=== PATIENT | male | born 1960 | race Caucasian/White ===

== ENCOUNTER 2019-08-04 09:08 | Outpatient (CLI) | payer OTHER, SELFPAY ==
--- NOTE | ~2019-08-04 | XR_ITS ---
EXAMINATION: XR knee LT 3V DATE: 08/04/2019 09:29 INDICATION: Left knee pain. TECHNIQUE: 4 views of left knee were obtained. COMPARISON: None. FINDINGS: Bone alignment is normal. No fracture. There is mild osteoarthritis of patellofemoral uyen rtment. There is a moderate-sized knee joint effusion. IMPRESSION: 1. Mild left knee osteoarthritis. 2. Moderate-sized left knee joint effusion. Reviewed, dictated and finalized at location A.
== END 2019-08-04 09:09 | disposition home or self-care (01) ==
PROVIDERS: PCP Internal Medicine; Visit Provider Internal Medicine
DX: M25.562 Pain in left knee (principal)
CPT/HCPCS: 73562

== ENCOUNTER 2019-08-24 15:56 | Outpatient (RCR) | payer OTHER, SELFPAY ==
--- NOTE | 2019-08-24 17:11 | PTOPEVAL ---
Thank you for referring Jack Calvert to [facility]. Please review, sign, date and return this plan of care CESAR. I agree with and certify that the following plan of care is medically necessary. Referring Physician Date Admitting Provider: Attending Provider: Alex Bryan MD Referring Provider: *PT Outpatient Evaluation Start: 08/24/19 16:09 Freq: Status: Active Protocol: Document 08/24/19 16:10 TRISHA (Rec: 08/24/19 16:46 TRISHA [id number]) Therapy Assessment Status Assessment Status Assessment Status Evaluation Evaluation Information Problem Diagnosis left MCL sprain Onset 06/01/19 Subjective Information Pt. reports that he was Query Text:As Reported By Patient/ working on his home when he Family started noticing gradual increase in left knee pain. He describes pain in the inside of the left knee. He states that pain is increased with activity. He reports that sitting with knee in wrong position can also increase his pain. He reports that getting up from a chair can also increase pain. Pt. goal is to decrease his left knee pain. 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 Activity of Daily Living Ability Independent Indoor/Home Mobility Independent Community Mobility Independent Stairs Ability Independent Functional Cognition (Planning, Shopping Independent , Taking Medications) Cooking Yes Cleaning Yes Laundry Yes Shopping Yes Driving Yes Pain Assessment Pain Scale Pain Scale Used Numeric (1 - 10) Self Report Pain Assessment Left Knee(s) Reported Pain Level 0 Lowest Pain Intensity 0 Greatest Pain Intensity 4 Pain Aggravating Factors Weight Bearing/Standing Pain Score Pain Score 0: Self Report Lower Extremity Muscle Strength Testing General Lower Extremity Strength Gross Lower Extremity Strength bilateral hip flexion 5/5, bilateral knee flexion 5/5, bilateral knee extension 5/5, bilateral ankle dorsiflexion 5
== END 2019-09-09 10:18 | disposition home or self-care (01) ==
LOC: CHSPT 15:56
PROVIDERS: PCP Internal Medicine; Visit Provider Internal Medicine
DX: M25.562 Pain in left knee (principal); S83.412A Sprain of medial collateral ligament of left knee, initial encounter
CPT/HCPCS: 97014; 97110; 97140; 97161; G0283

== ENCOUNTER 2020-10-08 18:43 | Emergency (ER) | payer OTHER, SELFPAY ==
[2020-10-08 19:12] VITALS: BP 126/78; PULSE 89; RESP 16; TEMP 37.7; O2SAT 95
[2020-10-08 19:47] LABS: SARS-CoV-2 Ag Positive (Negative)
--- NOTE | 2020-10-08 20:01 | ED.FEVER ---
HPI - Fever General Chief Complaint: Fever Stated Complaint: cough,headache,fever Source: patient Mode of arrival: ambulatory Limitations: no limitations History of Present Illness HPI Narrative: this is a 59-year-old gentleman that presents with some fever up to 97.7 is concerned about having COVID currently not short of breath no chest pain no abdominal pain no cough does have some mild congestion and temperature and was concerned about COVID. MD elicited complaint: fever Onset (ago): day(s) Measured temperature: 99.7 C Context: sick contacts Exacerbating factors: nothing Relieving factors: nothing Related Data Home Medications Medication Instructions Recorded Confirmed allopurinol 100 mg tablet 100 mg PO DAILY 09/28/20 09/28/20 atenolol 25 mg tablet 25 mg PO DAILY 09/28/20 09/28/20 rosuvastatin 10 mg tablet 10 mg PO DAILY 09/28/20 09/28/20 hydrochlorothiazide 25 mg PO DAILY 10/08/20 10/08/20 irbesartan 300 mg PO DAILY 10/08/20 10/08/20 Allergies Allergy/AdvReac Type Severity Reaction Status Date / Time No Known Allergies Allergy Verified 10/08/20 19:12 Review of Systems Review of Systems: All systems reviewed & are unremarkable except as noted in HPI and below PMFSH Past Medical History Medical History Patient denies medical problems Family History Family History Grandparent Family history of cardiovascular disease Malignant neoplasm of prostate Father Family history of gout Hypertension Mother Family history of osteoporosis Family history of hypercholesterolemia Hypertension Family history of kidney disease Other Cerebrovascular accident Depression Family history of Alzheimer's disease Family history of arthritis Family history of coronary artery disease Social History Social History Smoking status: Never smoker Alcohol intake: current Exam Const: General: no acute distress and alert Orientation/consciousness: patient oriented x3 HENMT: Head: normal to inspection Eyes: Conjunctivae: conjunctivae normal Pupils: Equal, round and reactive pupils present Chest: Chest palpation & inspection: normal inspection of the chest Resp: Effort & Inspection: normal respiratory effort Cardio: Rate: regular rate Rhythm: regular rhythm GI: GI Palp: Yes Soft to palpation Back/Spine/Pelvis: Back: no CVA tenderness Skin: General skin exam: normal color Rashes: no rashes Psych: Mental Status: mental status grossly normal Course WINE MASTER/PA Physician Supervision patient in the room after assessment resting comfortably in no acute distress has a low-grade fever with no shortness of breath and reviewed is COVID swab which was positive. Vital Signs Vital signs: Vital Signs Temperature 37.7 C H 10/08/20 19:12 Pulse Rate 89 10/08/20 19:12 Respiratory Rate 16 10/08/20 19:12 Blood Pressure 126/78 10/08/20 19:12 Pulse Oximetry 95 10/08/20 19:12 Temperature 37.7 C H 10/08/20 19:12 Pulse Rate 89 10/08/20 19:12 Respiratory Rate 16 10/08/20 19:12 Blood Pressure 126/78 10/08/20 19:12 Pulse Oximetry 95 10/08/20 19:12 MDM - Fever Lab Data Labs: Lab Results 10/08/20 Range/Units 19:13 SARS-CoV-2 Ag (Rapid) Positive A (Negative) Critical Care Time Critical Care Time Critical Care Time: No Discharge Plan Discharge Clinical Impression: COVID-19 Patient Disposition: Home, Self-Care Condition: Stable Instructions: Antibiotic Form, COVID-19 (Coronavirus Disease 2019) (ED) Additional Instructions: advised to self isolate, Tylenol or Motrin for fever drink plenty of fluids and follow-up primary care physician if symptoms persist or worsen. Prescriptions: No Action hydrochlorothiazide 25 mg tablet 25 mg PO DAILY RF: 0 irbesartan 300 mg tablet
[2020-10-08 20:07] VITALS: BP 126/78; PULSE 89; RESP 18; TEMP 37.7; O2SAT 95
== END 2020-10-08 20:07 | disposition home or self-care (01) ==
PROVIDERS: Emergency Provider Emergency Medicine; PCP Internal Medicine
DX: U07.1 COVID-19 (principal)
CPT/HCPCS: 87426; 99282; 99283; C9803

== ENCOUNTER 2020-10-14 10:53 | Outpatient (CLI) | payer OTHER, SELFPAY ==
--- NOTE | 2020-10-14 13:30 | PC.NURSE ---
Here for outpatient infusion for covid 19 diagnosis, to room 10 with door shut for safety
--- NOTE | 2020-10-14 13:35 | PC.NURSE ---
Pt to room 210 per wc with nurse. A&Ox3. Complains of body aches and chills for the last week. Oriented to room and infusion procedure. Pt has no questions. Call sterling in reach. Reminded to call with needs.
[2020-10-14] MEDS: diphenhydrAMINE HCl CAP 25 MG CAPSULE PO (13:54)
[2020-10-14] MEDS: ACETAMINOPHEN 325 MG TABLET 650 MG PO (13:54)
[2020-10-14] MEDS: FAMOTIDINE 20 MG TABLET PO (13:54)
--- NOTE | 2020-10-14 13:55 | PC.NURSE ---
Consent for Regeneron infusion discussed, read and signed by patient. Pt has no questions.
[2020-10-14 14:04] VITALS: BP 136/77; PULSE 84; RESP 20; TEMP 38; O2SAT 95
--- NOTE | 2020-10-14 14:41 | PC.NURSE ---
Pt resting per bed without complaint. IV infusing as ordered.
--- NOTE | 2020-10-14 15:08 | PC.NURSE ---
IV infusion complete. Pt tolerated well. Pt in bed, watching tv without complaint, waiting for his post infusion one hour observation to complete.
== END 2020-10-14 10:54 | disposition home or self-care (01) ==
LOC: CHSTREATRM 10:55
PROVIDERS: PCP Internal Medicine; Visit Provider Internal Medicine
DX: Z23 Encounter for immunization (principal); U07.1 COVID-19
CPT/HCPCS: A9270; J7050; M0243

== ENCOUNTER 2022-02-26 10:42 | Outpatient (CLI) | payer OTHER, SELFPAY ==
--- NOTE | ~2022-02-26 | XR_ITS ---
EXAM: XR shoulder RT min 2V DATE: 02/26/2022 10:58 HISTORY: R SHOULDER PAIN chronic pain x 6 months worse when . COMPARISON: None available. FINDINGS: Normal mineralization. No fracture or dislocation. No lytic or blastic lesion. Mild degene rative changes at the AC joint and glenohumeral joint. No erosion or periosteal change. Soft tissues within normal limits. IMPRESSION: Mild degenerative changes. Reviewed, dictated and finalized at location K. 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
== END 2022-02-26 10:43 | disposition home or self-care (01) ==
LOC: CHSIMG 10:44
PROVIDERS: PCP Internal Medicine; Visit Provider Internal Medicine
DX: M25.511 Pain in right shoulder (principal)
CPT/HCPCS: 73030

== ENCOUNTER 2022-03-21 12:06 | Outpatient (CLI) | payer OTHER, SELFPAY ==
[2022-03-21 12:54] LABS: SARS-CoV-2 RNA PCR Positive (Negative)
== END 2022-03-21 12:07 | disposition home or self-care (01) ==
LOC: CHSLAB 12:09
PROVIDERS: PCP Internal Medicine; Visit Provider Nurse Practitioner Family
DX: U07.1 COVID-19 (principal); J06.9 Acute upper respiratory infection, unspecified
CPT/HCPCS: U0003; U0005

== ENCOUNTER 2022-07-13 13:40 | Outpatient (CLI) | payer OTHER, SELFPAY ==
--- NOTE | ~2022-07-13 | XR_ITS ---
EXAMINATION: XR_CERV2-3V_CR DATE: 07/13/2022 14:00 INDICATION: Chronic right-sided neck pain. TECHNIQUE: 3 views of cervical spine on 4 radiographs were obtained. COMPARISON: None. FINDINGS: There is 4 degrees levocurvature of cervicothoracic spine. Vertebral body heights are gladys l. There is moderately decreased disc height at C5-C6. At C5-C6, there is severe bilateral uncoverteb ral joint osteoarthritis. There is multilevel mild facet joint osteoarthritis. There is mild central canal stenosis at C5-C6. No prevertebral soft tissue swelling. IMPRESSION: 1. Moderate spondylosis at C5-C6. Reviewed, dictated and finalized at location E.
== END 2022-07-13 13:41 | disposition home or self-care (01) ==
LOC: CHSLAB 13:42
PROVIDERS: PCP Internal Medicine; Visit Provider Nurse Practitioner Family
DX: M54.2 Cervicalgia (principal); M43.02 Spondylolysis, cervical region
CPT/HCPCS: 72040

== ENCOUNTER 2022-10-24 08:41 | Outpatient (CLI) | payer OTHER, SELFPAY ==
[2022-10-24 09:17] LABS: Hemoglobin A1C 5.9 % (<5.7)
[2022-10-24 09:38] LABS: Alanine Aminotransferase 49 U/L (16-63); Alkaline Phosphatase 65 U/L (46-116); Anion Gap 7 mmol/L (8-16); Aspartate Amino Transferase 28 U/L (15-37); Bilirubin,Total 0.7 mg/dL (0.00-1.00); Blood Urea Nitrogen 18 mg/dL (7-18); Calcium 9.5 mg/dL (8.5-10.1); Carbon Dioxide 30 mmol/L (21-32); Chloride 102 mmol/L (98-108); Cholesterol 192 mg/dL (0-200); Estimated Glomerular Filt Rate 54; Glucose 122 mg/dL (70-99); HDL Direct 49 mg/dL (40-60); LDL Cholesterol Calculated 119 mg/dL (<130); Osmolality Calculated 290 mOsm/kg (285-295); Potassium 4.3 mmol/L (3.5-5.1); Prostate Specific Antigen 1.8 ng/mL (< OR = 4.0); Sodium 139 mmol/L (136-145); Thyroid Stimulating Hormone 2.81 uIU/mL (0.36-3.74); Total Protein 7.2 g/dL (6.4-8.2); Triglycerides 121 mg/dL (0-150)
== END 2022-10-24 08:42 | disposition home or self-care (01) ==
LOC: CHSLAB 08:43
PROVIDERS: PCP Internal Medicine; Visit Provider Internal Medicine
DX: R73.03 Prediabetes (principal); I10 Essential (primary) hypertension
CPT/HCPCS: 36415; 80053; 80061; 83036; 84153; 84443; G0103

== ENCOUNTER 2023-05-02 10:10 | Outpatient (CLI) | payer OTHER, SELFPAY ==
--- NOTE | ~2023-05-02 | XR_ITS ---
EXAMINATION: XR sinus min 3V DATE: 05/02/2023 10:35 INDICATION: Chronic sinusitis. TECHNIQUE: 5 views of the paranasal sinuses were obtained. COMPARISON: None. FINDINGS: Bone alignment is normal. No fracture. The paranasal sinuses are clear. IMPRESSION: 1. Normal paranasal sinuses. Reviewed, dictated and finalized at location A.
== END 2023-05-02 10:11 | disposition home or self-care (01) ==
PROVIDERS: PCP Internal Medicine; Visit Provider Internal Medicine
DX: J32.9 Chronic sinusitis, unspecified (principal)
CPT/HCPCS: 70220

== ENCOUNTER 2024-07-10 21:01 | Emergency (ER) | payer OTHER, SELFPAY ==
--- NOTE | ~2024-07-10 | XR_ITS ---
CHEST RADIOGRAPH, PA AND LATERAL CLINICAL HISTORY: cough x 3 weeks. . COMPARISON: None available TECHNIQUE: PA and lateral views of the chest. FINDINGS The cardiomediastinal silhouette is unremarkable. The lungs are clear. Visualized osseous structures and soft tissues are unremarkable. IMPRESSION: No focal infiltrate or effusion. Reviewed, dictated and finalized at location A.
--- OUTSIDE RECORDS SUMMARY | 2024-07-10 21:02 | XMS_ITS | Referral Summary ---
Author Organization [facility] Address [facility] [place] [address] Care Team Providers Care Food Court Team Member Name Role Phone Alex Bryan MD Primary Care Provider [phone] Harjinder Trevino MD Unavailable [phone] Allergies No known active allergies Medications allopurinol (ZYLOPRIM) 100 mg tablet Take 200 mg by mouth daily 3 06/07/2018 Active losartan-hydroc hlorothiazide (HYZAAR) 100-25 mg per tablet Take 1 tablet by mouth daily 1 06/05/2018 Active predniSONE (DELTASONE) 20 mg tablet TAKE 3 TABLETS BY MOUTH FOR 3 DAYS, THEN 2 TABLET FOR 3 DAYS, THEN 1 TABLET FOR 3 DAYS 0 07/10/2018 Active hydroCHLOROthia zide (HYDRODIURIL) 25 mg tablet Take 25 mg by mouth daily 07/26/2021 Active Active Problems Problem Noted Date Diagnosed Date Anorectal pain 08/23/2021 Radial tunnel syndrome of right upper extremity 09/01/2018 Nonalcoholic fatty liver disease 02/12/2011 Abnormal liver function tests 02/08/2011 Social History Tobacco Use Types Packs/Day Years Used Date Smoking Tobacco: Never Smokeless Tobacco: Never Alcohol Use Standard Drinks/Week Comments Yes 12 (1 standard drink = 0.6 oz pu re alcohol) Sex and Gender Information Value Date Recorded Sex Assigned at Not on file 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 Gender Identity Not on file Sexual Orientation Not on file Last Filed Vital Signs Vital Sign Reading Time Taken Comments Blood Pressure 153/89 08/23/2021 8:58 AM CDT Pulse 65 08/23/2021 8:58 AM CDT Temperature 36.6 C (97.9 F) 08/23/2021 8:58 AM CDT Respiratory Rate - - Oxygen Saturation - - Inhaled Oxygen Concentration - - Weight 94.9 kg (209 lb 3.2 oz) 08/23/2021 8:58 A M CDT Height 185.4 cm (6' 1 ) 08/23/2021 8:58 AM CDT Body Mass Index 27.6 08/23/2021 8:58 AM CDT Plan of Treatment Not on file Insurance SocialF5 [facility] Member Subscriber Plan / Payer ( fective 2000-Present) Name:Jack Calvert Member ID:[id number] Relation to Subscriber:Self Name:Jack Calvert Subscriber ID:[id number] Payer ID:[id number] Type:[employer] Address: [address] [place] [id number] Care [address] Team Member Relationship Specialty Start Date End Date Alex Bryan MD PCP - General Internal Medicine 09/23/17 Harjinder Trevino MD [id number] [place] [address] Surgeon Colon and Rectal Surgery 08/23/21
--- OUTSIDE RECORDS SUMMARY | 2024-07-10 21:02 | XMS_ITS | Clinical Summary ---
Author Organization [facility] Address [facility] [place] [address] Care Team Providers Care Reeling Machine Setup Operator Name Role Phone Alex Bryan MD Primary Care Provider [phone] Harjinder Trevino MD Unavailable [phone] Allergies No known active allergies Medications allopurinol [...] disease 02/12/2011 Abnormal liver function tests 02/08/2011 Surgical History Surgery Date Site/Laterality Comments FISTULA REPAIR 02/18/2007 - 02/18/2008 Medical History Medical History Date Comments Hypertension High cholesterol Shoulder pain Numbness and tingling Gout Family History Medical History Relation Name Comments Cancer Father Cancer Maternal Grandfather No Known Problems Mother Colon cancer Other Malignant Neopl asm, Colon - heart disease, stroke (Added by TW Conv) Cancer Paternal Grandfather Heart failure Paternal Grandmother Relation Name Status Comments Father Maternal Grandfather Mother Other Paternal Grandfather Paternal Grandmother Social History Tobacco Use Types Packs/Day Years Used Date Smoking Tobacco: Never Smokeless Tobacco: Never Alcohol Use Standard Drinks/Week Comments Yes 12 (1 standard drink = 0.6 oz pu re alcohol) Sex and Gender Information Value Date Recorded Sex Assigned at Not on file 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 Gender Identity Not on file Sexual Orientation Not on file Obstetrics History Last Filed Vital Signs Vital Sign Reading [...] 08/23/2021 8:58 AM CDT Plan of Treatment Health Maintenance Due Date Last Done Comments Colon Cancer Screening-Colonoscopy 1960 Depression Screening 1960 Hepatitis C Screening 1960 Prostate Cancer Screening-PSA 1960 DTaP/Tdap/Td Vaccine (1 - Tdap) 10/28/1971 Hepatitis B Screening 1978 Regular Well Visit/Exam 18-64 1978 Pneumococcal vaccine <65 (1 of 2 - PCV) 10/28/1979 Zoster Vaccine (1 of 2) 2010 Influenza Vaccine (Season Ended) 2024 Insurance [employer] [facility] [id number] Care Teams Reeling Machine Setup Operator Relationship Specialty Start Date End Date Alex Bryan MD PCP - General Internal Medicine 09/23/17 Harjinder Trevino MD [id number] [place] [address] Surgeon Colon and Rectal Surgery 08/23/21
[2024-07-10 21:03] VITALS: BP 135/89; PULSE 94; RESP 18; TEMP 36.4; O2SAT 95
--- NOTE | 2024-07-10 21:06 | ED.URI ---
HPI - URI/Sore Throat General Chief Complaint: Upper Respiratory Infection Stated Complaint: cough Time Seen by Provider: 07/10/24 21:01 Source: patient Mode of arrival: ambulatory Limitations: no limitations History of Present Illness HPI Narrative: Patient is a 63-year-old male with cough and chest congestion for the past week. He said he gets this roughly once a year and requires antibiotics. He has tried Z-Tod without success in the past. No fever or chills. MD elicited complaint: cough Pertinent past history: other ( Hypertension, hyperlipidemia) Onset (ago): week(s) ( 1) Consistency: constant Severity: moderate Pain scale (0-10): 1 Description of mucous: clear Able to tolerate fluids by mouth: Yes Exacerbating factors: nothing Relieving factors: nothing Context: other ( patient having progressively worse cough with an attack of shortness of breath this evening and came to the ER for evaluation.) Associated symptoms: cough and shortness of breath Treatments prior to arrival: cold medicine Related Data Home Medications ?Medication ?Instructions ?Recorded ?Confirmed ?Last Taken ?Type allopurinol 100 mg tablet 100 mg PO DAILY 09/28/20 08/07/23 Unknown History atenolol 25 mg tablet 25 mg PO DAILY 09/28/20 08/07/23 Unknown History rosuvastatin 10 mg tablet 10 mg PO DAILY 09/28/20 08/07/23 Unknown History hydrochlorothiazide 25 mg tablet 25 mg PO DAILY 10/08/20 08/07/23 Unknown History irbesartan 300 mg tablet 300 mg PO DAILY 10/08/20 08/07/23 Unknown History Allergies Allergy/AdvReac Type Severity Reaction Status Date / Time No Known Allergies Allergy Verified 08/07/23 09:25 Review of Systems Review of Systems: All systems reviewed & are unremarkable except as noted in HPI and below Constitutional: Constitutional: Reports no additional constitutional complaints Eyes: Eyes: Reports no additional eye complaints ENT: Reports system reviewed and no additional complaints, except as documented Cardiovascular: Cardiovascular: Reports no additional cardiovascular complaints Respiratory: Respiratory: Reports no additional respiratory complaints Gastrointestinal: Gastrointestinal: Reports no additional gastrointestinal complaints Genitourinary: Genitourinary: Reports no additional male genitourinary complaints Musculoskeletal: Musculoskeletal: Reports no additional musculoskeletal complaints Integumentary/Breasts: Skin/Breast: Reports system reviewed and no additional complaints, except as docu Neurologic: Reports system reviewed and no additional complaints, except as documented Psychiatric: Psychiatric: Reports no additional psychiatric complaints Endocrine: Endocrine: Reports no additional endocrine complaints Hematologic/Lymphatic: Hematologic/Lymphatic: Reports no additional hematologic/lymphatic complaints Allergic/Immunologic: Allergic/Immunologic: Reports no additional allergic/immunologic complaints PMFSH Past Medical History Medical History Anal fistula Patient denies medical problems Family History Family History Grandparent Family history of cardiovascular disease Malignant neoplasm of prostate Father Family history of gout Hypertension Mother Family history of osteoporosis Family history of hypercholesterolemia Hypertension Family history of kidney disease Other Cerebrovascular accident Depression Family history of Alzheimer's disease Family history of arthritis Family history of coronary artery disease Social History Social History Smoking status: Never smoker Alcohol intake: current Substance use: never Substance use type: does not use Do You Feel Safe in your Home?: Yes Lack of Transportation: No Lack of Food: Never True Current Housing: I Have Housing Concerned About Future Housing: No Difficulty Paying Gas/Electric Bills: No Difficulty Paying for Meds: No Currently Unemployed: No Education: High School Diploma/GED Difficulty w/ Childcare or Family Care: No Exam Const: General: healthy appearing Nutritional Appearance: well nourished Orientation/consciousness: patient oriented x3 Limitations: no limitations HENMT: Head: normal to inspection Ears: external ears normal Face/Nose/Sinus: Normal external nose present Eyes: Conjunctivae: conjunctivae normal Pupils: Equal, round and reactive pupils present EOM: EOMs intact bilaterally Neck: Neck: normal visual inspection Chest: Chest palpation & inspection: normal inspection of the chest Resp: Effort & Inspection: normal respiratory effort, not labored, no retractions, not tachypneic and no use of accessory muscles Auscultation: not clear to auscultation bilaterally, crackles ( Right lower base), no rales, rhonchi ( bilateral), wheezes ( expiratory), breath sounds present and diminished lung sounds ( bilateral) Cardio: Rate: regular rate Rhythm: regular rhythm Heart sounds: no murmurs GI: Inspection: non-distended GI Palp: Yes Soft to palpation and No Tenderness to palpation present (GI) Auscultation: normal bowel sounds : General: Yes bladder normal to palpation Back/Spine/Pelvis: Back: no CVA tenderness Skin: General skin exam: normal color Rashes: no rashes Wounds: no wounds Neuro: General: patient oriented x3 Cranial nerves: Yes Nystagmus not present Speech: normal speech Gait exam (Neuro): Normal gait present Extrem: General: normal to inspection Psych: Mental Status: mental status grossly normal Affect: normal affect Attitude: cooperative Course Vital Signs Vital signs: Vital Signs Oxygen Delivery Room Air 07/10/24 21:01 Temperature 36.4 C L 07/10/24 21:03 Pulse Rate 72 07/10/24 21:44 Respiratory Rate 20 07/10/24 21:44 Blood Pressure 135/89 07/10/24 21:03 Pulse Oximetry 98 07/10/24 21:44 Oxygen Delivery Room Air 07/10/24 21:03 MDM - URI/Sore Throat MDM Narrative Medical decision making narrative: patient is a 63-year-old male with progressively worse cough over the past week. We will do a chest x-ray. We will treat accordingly. Imaging Data Attestation: I personally reviewed and interpreted this imaging study as follows: Radiologist's impression: Chest x-ray is negative for acute process Discharge Plan Discharge Clinical Impression: Acute bacterial bronchitis Patient Disposition: Home Condition: Stable Instructions: Antibiotic Form, Acute Bronchitis (ED) Patient Language: Wallisian Prescriptions: New codeine-guaifenesin 10-100 mg/5 mL liquid 5 ml PO TID PRN (Reason: cough) Qty: 118 0RF Rx Instructions: 5-10mL per dose amoxicillin-pot clavulanate 875-125 mg tablet 1 tablet PO BID 10 Days Qty: 20 0RF prednisone 20 mg tablet 40 mg PO DAILY 3 Days Qty: 6 0RF albuterol sulfate [Ventolin HFA] 90 mcg/actuation HFA aerosol inhaler 2 inh inhalation QID PRN (Reason: shortness of breath or wheezing) Qty: 6.7 0RF No Action hydrochlorothiazide 25 mg tablet 25 mg PO DAILY irbesartan 300 mg tablet 300 mg PO DAILY atenolol 25 mg tablet 25 mg PO DAILY allopurinol 100 mg tablet 100 mg PO DAILY rosuvastatin 10 mg tablet 10 mg PO DAILY Follow-up/Referrals: Alex Bryan MD [Primary Care Provider] - Time of Disposition: 22:00
[2024-07-10 21:44] VITALS: PULSE 72; RESP 20; O2SAT 98
[2024-07-10] MEDS: AMOXICILLIN/CLAVULANATE K 875-125 MG TAB 1 TABLET PO (21:44)
[2024-07-10] MEDS: methylPREDNISolone SOD SUCC 125 MG VIAL 80 MG IM (21:44)
[2024-07-10] MEDS: IPRATROPIUM 0.5 MG/ALBUTEROL SULFATE 2.5 MG AMPUL.NEB 3 ML INHALATION (21:44)
[2024-07-10] MEDS: guaiFENesin/CODEINE 100/10 MG 5 ML SYRUP 10 ML PO (21:44)
--- OUTSIDE RECORDS SUMMARY | 2024-07-10 21:45 | XMS_ITS | Referral Summary ---
Author Organization 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 Gender Identity Not on file Sexual Orientation [...] Plan of Treatment Not on file Insurance [employer] [facility] Member Subscriber Plan / Payer ( fective 2000-Present) Name:Jack Calvert Member ID:[id number] Relation to Subscriber:Self Name:Jack Calvert Subscriber ID:[id number] Payer ID:[id number] Type:Smart[employer] Address: [address] [place] [id number] Care Teams Car Jockey Relationship Specialty Start Date End Date Alex Bryan MD PCP - General Internal Medicine 09/23/17 Harjinder Trevino MD [id number] [place] [address] Surgeon Colon and Rectal Surgery 08/23/21
--- OUTSIDE RECORDS SUMMARY | 2024-07-10 21:45 | XMS_ITS | Clinical Summary ---
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
[2024-07-10 22:09] VITALS: BP 119/75; PULSE 91; RESP 20; O2SAT 94
== END 2024-07-10 22:09 | disposition home or self-care (01) ==
PROVIDERS: Emergency Provider Emergency Medicine; PCP Internal Medicine
DX: J20.8 Acute bronchitis due to other specified organisms (principal); I10 Essential (primary) hypertension; E78.5 Hyperlipidemia, unspecified
CPT/HCPCS: 71046; 94640; 96372; 99283; A9270; J2919

== ENCOUNTER 2024-07-16 11:42 | Outpatient (CLI) | payer OTHER, SELFPAY ==
--- OUTSIDE RECORDS SUMMARY | 2024-07-16 11:46 | XMS_ITS | Referral Summary ---
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 Gender Identity Not on file Sexual Orientation [...] A M CDT Height 185.4 cm (6' 1) 08/23/2021 8:58 AM CDT Body Mass Index 27.6 08/23/2021 8:58 AM CDT Plan of Treatment Not on file Insurance [employer] [facility] Member Subscriber Plan / Payer ( fective 2000-Present) Name:Jack Calvert Member ID:[id number] Relation to Subscriber:Self Name:Jack Calvert Subscriber ID:[id number] Payer ID:[id number] Type:[employer] Address: [address] [id number] Care Teams Planner Intern Relationship Specialty Start Date End Date Alex Bryan MD PCP - General Internal Medicine 09/23/17 Harjinder Trevino MD [id number] [place] [address] Surgeon Colon and Rectal Surgery 08/23/21
--- OUTSIDE RECORDS SUMMARY | 2024-07-16 11:46 | XMS_ITS | Clinical Summary ---
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
[2024-07-16 12:16] LABS: Hematocrit 44.6 % (40.0-54.0); Hemoglobin 15.1 g/dL (14.0-18.0); Mean Corpuscular HGB Conc 33.9 g/dL (32-36); Mean Corpuscular Volume 88.7 fL (78.0-102.0); Mean Platelet Volume 8.3 fl (8.7-11.0); Platelet Count Result 276 K/mm3 (150-420); Red Blood Count 5.03 M/mm3 (4.70-6.10); Red Cell Distribution Width 12.9 % (11.6-14.4); White Blood Count 8.5 K/mm3 (4.8-10.8)
[2024-07-16 12:48] LABS: Alanine Aminotransferase 57 U/L (6-50); Albumin Level 4.1 g/dL (3.5-5.1); Alkaline Phosphatase 47 U/L (38-126); Anion Gap 4 mmol/L (4-12); Aspartate Amino Transferase 44 U/L (17-59); Bilirubin,Total 0.7 mg/dL (0.2-1.3); Blood Urea Nitrogen 20 mg/dL (9-20); CRP 0.6 mg/dL (<1.0); Calcium 8.7 mg/dL (8.4-10.2); Carbon Dioxide 26 mmol/L (22-30); Chloride 106 mmol/L (98-107); Estimated Glomerular Filt Rate > 60; Glucose 90 mg/dL (65-110); Osmolality Calculated 284 mOsm/kg (285-295); Potassium 4.1 mmol/L (3.4-5.0); Sodium 136 mmol/L (137-145); Total Protein 6.7 g/dL (6.3-8.2)
[2024-07-21 16:33] LABS: Alternaria alternata IgE <0.10 kU/L; Alternaria alternata IgE Class 0; Aspergillus fumigatus IgE <0.10 kU/L; Bermuda Grass (G2) IgE 0.35 kU/L; Bermuda Grass (G2) IgE Class 1; Cat Dander IgE <0.10 kU/L; Cat Dander IgE Class 0; Cladosporium herbarum IgE <0.10 kU/L; Cladosporium herbarum IgE Clas 0; Cockroach IgE 0.34 kU/L; Cockroach IgE Clas 0/1; Common Ragweed IgE Class 1; Cottonwood IgE 0.27 kU/L; Dermatophagoides Farinae Class 0/1; Dermatophagoides Pterony Class 0/1; Dermatophagoides Pteronyssinus 0.27 kU/L; Elm (T8) IgE 0.39 kU/L; Elm (T8) IgE Class 1; Hickory/Pecan IgE 0.32 kU/L; Hickory/Pecan IgE Class 0/1; Immunoglobulin E 640 kU/L (<OR=114); Maple Box Elder IgE Class 1; Mountain Cedar IgE 1.98 kU/L; Mountain Cedar IgE Class 2; Mouse Urine Proteins IgE <0.10 kU/L; Mouse Urine Proteins IgE Class 0; Oak IgE 0.25 kU/L; Peniciliium notatum class 0; Penicillium notatum (M1) IgE <0.10 kU/L; Rough Marsh Elder Class 1; Rough Pigweed (W14) IgE 0.24 kU/L; Rough Pigweed (W14) IgE Class 0/1; Russian Thistle 0.36 kU/L; Sycamore IgE 0.27 kU/L; Sycamore IgE Class 0/1; Timothy Grass IgE 0.43 kU/L; Timothy Grass IgE Class 1; Walnut Tree IgE 0.28 kU/L; Walnut Tree IgE Class 0/1; White Ash IgE Class 2; White Mulberry IgE 0.19 kU/L; White Mulberry IgE Class 0/1
[2024-07-22 15:33] LABS: Can f 1 <0.10 kU/L (<0.10); Can f 2 <0.10 kU/L (<0.10); Can f 3 <0.10 kU/L (<0.10); Can f 4 <0.10 kU/L (<0.10); Can f 5 <0.10 kU/L (<0.10); Can f 6 <0.10 kU/L (<0.10)
== END 2024-07-16 11:43 | disposition home or self-care (01) ==
LOC: CHSLAB 11:44
PROVIDERS: PCP Internal Medicine; Visit Provider Internal Medicine
DX: R06.00 Dyspnea, unspecified (principal); R05.9 Cough, unspecified
CPT/HCPCS: 36415; 80053; 82785; 85027; 86003; 86008; 86140

== ENCOUNTER 2024-07-29 09:49 | Outpatient (CLI) | payer OTHER, SELFPAY ==
--- OUTSIDE RECORDS SUMMARY | 2024-07-29 10:58 | XMS_ITS | Clinical Summary ---
Author Organization 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
--- OUTSIDE RECORDS SUMMARY | 2024-07-29 10:58 | XMS_ITS | Referral Summary ---
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 Gender Identity Not on file Sexual Orientation [...] Plan of Treatment Not on file Insurance [employer] [facility] Member Subscriber Plan / Payer ( fective 2000-Present) Name:Jack Calvert Member ID:[id number] Relation to Subscriber:Self Name:Jack Calvert Subscriber ID:[id number] Payer ID:[id number] Type:[employer] Address: [address] [place] [address] Care Teams Emergency Specialist Relationship Specialty Start Date End Date Alex Bryan MD PCP - General Internal Medicine 09/23/17 Harjinder Trevino MD [id number] [place] [address] Surgeon Colon and Rectal Surgery 08/23/21
== END 2024-07-29 09:50 | disposition home or self-care (01) ==
LOC: CHSCARD 09:50
PROVIDERS: PCP Internal Medicine; Visit Provider Internal Medicine
DX: R06.00 Dyspnea, unspecified (principal); R05.9 Cough, unspecified; R94.2 Abnormal results of pulmonary function studies; J98.8 Other specified respiratory disorders
CPT/HCPCS: 94060; 94726; 94729

== ENCOUNTER 2024-11-05 10:10 | Outpatient (CLI) | payer OTHER, SELFPAY ==
--- NOTE | ~2024-11-05 | XR_ITS ---
EXAMINATION: XR wrist LT min 3V, 11/05/2024 10:17 CDT HISTORY: LEFT WRIST PAIN/WC INJURY COMPARISON: No comparisons available. Findings: No acute fracture or malalignment. Moderate degenerative changes of the first metacarpal carpal joint Soft tissues unremarkable. Impression: No acute fracture or malalignment. Reviewed, dictated and finalized at location A. Impression: No acute fracture or malalignment.
--- OUTSIDE RECORDS SUMMARY | 2024-11-05 10:48 | XMS_ITS | Clinical Summary ---
Author Organization [facility] Address [facility] [place] [address] Care Team Providers Care Furnace Checker Name Role Phone Unavailable Primary Care Provider Unavailabl e Social History Tobacco Use Types Packs/Day Years Used Date Smoking Tobacco: Never Assessed Sex and Gender Information Value Date Recorded Sex Assigned at Not on file Legal Sex Male 4:14 PM CDT Gender Identity Not on file Sexual Orientation Not on file Plan of Treatment Health Maintenance Due Date Last Done Comments Colorectal Cancer Screening Colonoscopy (10 Years) 1960 Annual Physical 10/28/1963 Hepatitis C 1978 DTaP, Tdap and Td Vaccines ( 1 - Tdap) 10/28/1979 Pneumococcal Vaccine: 50+ Ye ars (1 of 1 - PCV) 2010 Zoster Vaccines (1 of 2) 2010 COVID-19 Vaccine ( - 2023-2 5 season) 2024 RSV Immunization or 60+ Years (1 - 1-dose 75+ series) 10/28/2035 Meningococcal B Vaccine Aged Out No l onger eligible based on patient's age to complete this topic Meningococcal Vaccine Aged Out No anders marcos eligible based on patient's age to complete this topic RSV Immunizations Under 20 Months Aged Out No longer eligible based on patient's age to complete this topic
--- OUTSIDE RECORDS SUMMARY | 2024-11-05 10:48 | XMS_ITS | Clinical Summary ---
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
== END 2024-11-05 10:11 | disposition home or self-care (01) ==
LOC: CHSIMG 10:13
PROVIDERS: PCP Internal Medicine; Visit Provider Internal Medicine
DX: M25.532 Pain in left wrist (principal)
CPT/HCPCS: 73110

== ENCOUNTER 2024-11-18 08:11 | Outpatient (RCR) | payer OTHER, SELFPAY ==
--- NOTE | 2024-11-18 09:31 | OPREHPOC ---
Outpatient Therapy Plan of Care This is a Multidisciplinary Plan of Care that may contain components documented by all disciplines (PT, OT, and ST.) PT Problem 1 PT Problem #1 Knowledge Deficit PT Goal 1 Goal / Goal Update independent and compliant with HEP Target Visit 3 PT Problem 2 PT Problem #2 Pain PT Goal 1 Goal / Goal Update no pain in the L wrist Target Visit 6 PT Problem 3 PT Problem #3 Impaired Range of Motion PT Goal 1 Goal / Goal Update L wrist rom to be withing 5 degrees of all R wrist measurements Target Visit 6 PT Problem 4 PT Problem #4 Impaired Functional Mobility PT Goal 1 Goal / Goal Update patient to display 10% or less functional deficits on the quick dash patient to return to full work duties without pain or limitations Target Visit 6
--- NOTE | 2024-11-18 09:31 | PTOPEVAL1 ---
Assessment and note entered by JT File, PT Evaluation Information Assessment Status Evaluation Diagnosis L wrist pain Onset 10/01/2024 Subjective Information patient reports he injured his L wrist closing the lock on a manual garage door lock on 10/01/2024. he reports he did not notice the lock wasnt lined up and it bent his wrist back. he reports it did not bother him that night. he reports it was fine all day on ozzie until the evening. he reports in addition to his wrist pain, he was began to get a numbness in the L thumb. he reports the thumb is numb and tingling along the inside half of the thumb. he reports in addition to this, he has the most pain with side to side movements of the wrist and activities like getting his wallet out of putting on a seatbelt. he reports most pain along the outside of the L wrist. Reported Pain Level Pain Score 5: Self Report Assessment PT Clinical Summary mr. de souza is a 64 yo man who presents to skilled PT with an injury to the L wrist. he presents today with pain in the L wrist with ulnar deviation. he displays tenderness to the lateral L wrist, and decreased L wrist rom. continued skilled PT is indicated to improve his objective/ functional deficits, reduce pain, and return to his prior level functional activities and work performance without limitations. Plan of Care Interventions Electrical Stimulation,Hot Pack/Cold Pack,Manual Therapy,Neuro Re-education,Patient/Caregiver Education,Therapeutic Activities,Therapeutic Exercise PT Services Indicated Yes Treatment Frequency and 2x weekly for 6 visits Duration These treatments will address the objective and functional deficits as defined above. The patient will be advanced safely and appropriately in order for the patient to progress towards his/her prior level of function. Additional exercises will be introduced and as well as a comprehensive home exercise program upon discharge, if needed, ?to ensure carryover of functional gains achieved in the clinic. This treatment plan has been reviewed and agreement upon by the patient.
== END 2025-02-16 23:59 | disposition home or self-care (01) ==
LOC: CHSPT 08:11
PROVIDERS: PCP Internal Medicine; Visit Provider Internal Medicine
DX: M25.532 Pain in left wrist (principal)
CPT/HCPCS: 97110; 97112; 97140; 97161

== ENCOUNTER 2025-02-03 11:15 | Outpatient (CLI) | payer OTHER, SELFPAY ==
--- NOTE | ~2025-02-03 | XR_ITS ---
EXAMINATION: XR chest 2V, 02/03/2025 16:45 MOSAIC FLOOR LAYER HISTORY: COUGH COMPARISON: No comparisons available. Technique: 2 views obtained. Findings: The lungs are clear, no effusion. No pneumothorax. Heart is normal size. Mediastinal and hilar contours are within normal limits. Bony thorax no acute abnormality. Impression: No acute cardiopulmonary abnormality. Reviewed, dictated and finalized at location P. IC FLOOR LAYER Impression: No acute cardiopulmonary abnormality.
[2025-02-03 11:34] LABS: Hematocrit 45.3 % (40.0-54.0); Hemoglobin 15.5 g/dL (14.0-18.0); Mean Corpuscular HGB Conc 34.2 g/dL (32-36); Mean Corpuscular Hemoglobin 31.1 pg (27.0-31.0); Mean Corpuscular Volume 91.0 fL (78.0-102.0); Platelet Count Result 291 K/mm3 (150-420); Red Blood Count 4.98 M/mm3 (4.70-6.10); White Blood Count 15.1 K/mm3 (4.8-10.8)
[2025-02-03 11:36] LABS: Add Urine Microscopic? NO; Appearance Urine Clear (Clear); Glucose Urine UA Negative (Negative); Leukocyte Esterase Ur Negative (Negative); Nitrate Urine Negative (Negative); Specific Grav Ur 1.010 (1.010-1.020)
[2025-02-03 12:26] LABS: Alanine Aminotransferase 55 U/L (6-50); Albumin Level 4.8 g/dL (3.5-5.1); Alkaline Phosphatase 60 U/L (38-126); Anion Gap 12 mmol/L (4-12); Aspartate Amino Transferase 51 U/L (17-59); Bilirubin,Total 0.6 mg/dL (0.2-1.3); Blood Urea Nitrogen 20 mg/dL (9-20); CRP 1.2 mg/dL (<1.0); Calcium 9.5 mg/dL (8.4-10.2); Carbon Dioxide 25 mmol/L (22-30); Chloride 104 mmol/L (98-107); Cholesterol 277 mg/dL (0-200); Estimated Glomerular Filt Rate > 60; Glucose 88 mg/dL (65-110); HDL Direct 50 mg/dL; Osmolality Calculated 293 mOsm/kg (285-295); Potassium 4.1 mmol/L (3.4-5.0); Sodium 141 mmol/L (137-145); Total Protein 7.8 g/dL (6.3-8.2); Triglycerides 187 mg/dL (<150)
[2025-02-03 12:54] LABS: Thyroid Stimulating Hormone 2.300 uIU/mL (0.465-4.680)
--- OUTSIDE RECORDS SUMMARY | 2025-02-03 13:34 | XMS_ITS | Clinical Summary ---
Author Organization [facility] Address [facility] [place] [address] Care Team Providers Care Portrait Consultant Name Role Phone Unavailable Primary Care Provider [...] of 2) 2010 COVID-19 Vaccine ( - 2024-2 6 season) 2024 Influenza Adult (#1) 2024 RSV Immunization or 60+ Years (1 - 1-dose 75+ series) 10/28/2035 Hepatitis A Vaccines Aged Out No long er eligible based on patient's age to complete this topic Meningococcal B Vaccine Aged Out No l onger eligible based on patient's age to complete this topic Meningococcal Vaccine Aged Out No anders marcos eligible based on patient's age to complete this topic RSV Immunizations Under 20 Months Aged Out No longer eligible based on patient's age to complete this topic
--- OUTSIDE RECORDS SUMMARY | 2025-02-03 13:34 | XMS_ITS | Clinical Summary ---
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
== END 2025-02-03 11:16 | disposition home or self-care (01) ==
PROVIDERS: PCP Internal Medicine; Visit Provider Internal Medicine
DX: I10 Essential (primary) hypertension (principal); E78.5 Hyperlipidemia, unspecified; J45.901 Unspecified asthma with (acute) exacerbation
CPT/HCPCS: 36415; 71046; 80053; 80061; 81003; 84443; 85027; 86140